=== PATIENT | female | born 1985 | race Two or more races ===

== ENCOUNTER 2019-09-28 12:15 | Inpatient (IN) | payer OTHER ==
[~2019-09-28] VITALS: Ht 167.6 cm; Wt 3.6 kg
[~2019-09-28 12:15] MED LIST: PRENATAL 1 PL1 UDTAB; ZOFRAN2 MG/M1
[2019-10-02] MEDS ORDERED: FOLIC ACID0.8 M1 PO (08:27)
== END 2019-10-05 15:07 | disposition home or self-care (01) | DRG 785 ==
LOC: O/R 10-02 06:30 → OB/GYN 10-02 06:30
PROVIDERS: ADMIT Obstetrics & Gynecology; ATTEND Obstetrics & Gynecology
PROC: 0UB70ZZ Excision of Bilateral Fallopian Tubes, Open Approach (ICD-10-PCS; 2019-10-02)
PROC: 4A1HXFZ Monitoring of Products of Conception, Cardiac Rhythm, External Approach (ICD-10-PCS; 2019-10-02)
PROC: 3E033VJ Introduction of Other Hormone into Peripheral Vein, Percutaneous Approach (ICD-10-PCS; 2019-10-02)
PROC: 10D00Z1 Extraction of Products of Conception, Low, Open Approach (ICD-10-PCS; principal; 2019-10-02 08:30)
DX: O34.211 Maternal care for low transverse scar from previous cesarean delivery (principal); Z3A.39 39 weeks gestation of pregnancy; Z37.0 Single live birth; Z30.2 Encounter for sterilization

== ENCOUNTER 2021-06-09 06:35 | Day surgery (SDC) | payer OTHER ==
[~2021-06-09 06:35] MED LIST changes: +FOLIC ACID0.8 M1 PO
[2021-06-09] MEDS ORDERED: AMOX1TAB5 PO (14:22)
[2021-06-09] MEDS ORDERED: ULTRACET PO (14:22)
[2021-06-09] MEDS ORDERED: PROTONIX40 MG PO (14:22)
== END 2021-06-09 16:30 | disposition home or self-care (01) ==
LOC: CIR.AMB 06:35
PROVIDERS: ATTEND Surgery
DX: I87.2 Venous insufficiency (chronic) (peripheral) (principal)